=== PATIENT | female | born 1970 | race Caucasian/White ===

== ENCOUNTER 2016-11-20 12:50 | Emergency (ER) | payer BC, OTHER ==
[2016-11-20 14:36] VITALS: BP 124/79
--- NOTE | 2016-11-20 14:54 | UC ---
Throat Pain/Nasal Pranay HPI - HPI Summary HPI Summary: worsening sinus pain and congestion, Head feels terrible, body aches been going on for 5 days and hjas surgery scheduled Friday---Is concerned it may be cancelled - History of Current Complaint Chief Complaint: UCRespiratory Stated Complaint: SINUS,COUGH,CONGESTION Time Seen by Provider: 11/20/16 14:44 Hx Obtained From: Patient Hx Last Menstrual Period: 10/10/16 ?: No Onset/Duration: Sudden Onset, Lasting Days - 5, Still Present, Worse Since - getting worse daily Severity: Moderate Pain Intensity: 6 Pain Scale Used: 0-10 Numeric Cough: Nonproductive Associated Signs & Symptoms: Positive: Sinus Discomfort - Allergies/Home Medications Allergies/Adverse Reactions: Allergies Allergy/AdvReac Type Severity Reaction Status Date / Time Erythromycin Allergy Severe Hives Verified 11/20/16 14:27 Adhesive Tape Allergy Mild Rash, Verified 11/20/16 14:27 Swelling PMH/Surg Hx/FS Hx/Imm Hx Previously Healthy: No Endocrine History Of: Denies: Diabetes, Thyroid Disease Cardiovascular History Of: Reports: Cardiac Disorders - SVT Denies: Hypertension, Congestive Heart Failure Respiratory History Of: Reports: Asthma Denies: COPD GI/ History Of: Denies: Ulcer, Renal Disease - Surgical History Surgical History: Yes Surgery Procedure, Year, and Place: R shoulder surgery......C SECTIONS, GALL BLADDER REMOVAL, T&A,.. CYST REMOVED FROM NECK, VARICOSE VEIN STRIPPING; TUBAL LIGATION, STENT in left groin. - Family History Known Family History: Positive: Diabetes, Respiratory Disease, Other - GOUT - Social History Occupation: Employed Full-time Lives: With Family Alcohol Use: None Substance Use Type: Excessive Caffeine Smoking Status (MU): Heavy Every Day Tobacco Smoker Type: Cigarettes Amount Used/How Often: ~ 1/2 ppd Length of Time of Smoking/Using Tobacco: started ~ age 14 Household Exposure Type: Cigarettes Cessation Counseling: Patient Advised to Stop - Immunization History Most Recent Influenza Vaccination: Fall 2015 Most Recent Tetanus Shot: 2012 Review of Systems Constitutional: Negative Skin: Negative Eyes: Negative ENT: Negative Respiratory: Cough Cardiovascular: Negative Gastrointestinal: Negative Genitourinary: Negative Motor: Negative Neurovascular: Negative Musculoskeletal: Negative Neurological: Headache - frontal and maxillary sinus Psychological: Negative All Other Systems Reviewed And Are Negative: Yes Physical Exam Triage Information Reviewed: Yes Appearance: Well-Nourished, Ill-Appearing, Pain Distress Vital Signs: Initial Vital Signs Temp 97.2 F 11/20/16 14:30 Pulse 81 11/20/16 14:30 Resp 18 11/20/16 14:30 BP 124/79 11/20/16 14:30 Pulse Ox 96 11/20/16 14:30 Vital Signs Reviewed: Yes Eye Exam: Normal Eyes: Positive: Conjunctiva Clear ENT Exam: Normal ENT: Positive: Normal ENT inspection, Hearing grossly normal, Pharynx normal, Nasal congestion, TMs normal. Negative: Nasal drainage, Tonsillar swelling, Tonsillar exudate, Trismus, Muffled/hoarse voice Dental Exam: Normal Neck exam: Normal Neck: Positive: Supple, Nontender, No Lymphadenopathy Respiratory Exam: Normal Respiratory: Positive: Chest non-tender, Lungs clear, Normal breath sounds, No respiratory distress, No accessory muscle use Cardiovascular Exam: Normal Cardiovascular: Positive: RRR, No Murmur, Pulses Normal, Brisk Capillary Refill Musculoskeletal Exam: Normal Musculoskeletal: Positive: Strength Intact, ROM Intact, No Edema Neurological Exam: Normal Neurological: Positive: Alert, Muscle Tone Normal Psychological Exam: Normal Skin Exam: Normal Throat Pain/Nasal Course/Dx - Course Assessment/Plan: flonase or nasonex, zyrtec D, Augmentin, increase fluids, nicotine cesassation, follow with pcp - Differential Dx/Diagnosis Differential Diagnosis/HQI/PQRI: Laryngitis, Peritonsillar Abscess, Pharyngitis , Sinusitis, URI Provider Diagnoses: Rhinosinusitis Discharge - Discharge Plan Condition: Stable Disposition: HOME Prescriptions: Amoxicillin/Clavulanate TAB* [Augmentin TAB 875*] 875 mg PO BID #20 tab Cetirizine-Pseudoephedrine [Zyrtec-D Allergy/Congesti] 1 tab PO BID PRN #30 tab PRN Reason: nasal congestion Patient Education Materials: How to Stop Smoking (ED), Sinusitis (ED), Cigarette Smoking and Your Health (GEN), How to Use Nasal [place] (ED) Forms: *Work Release Referrals: Isidro Flores MD [Medical Doctor] - 5 Days
== END 2016-11-20 15:18 | disposition home or self-care (01) ==
LOC: UCCORT 12:50
DX: J32.9 Chronic sinusitis, unspecified (principal); I47.1 Supraventricular tachycardia; J45.909 Unspecified asthma, uncomplicated; Z90.49 Acquired absence of other specified parts of digestive tract; Z88.1 Allergy status to other antibiotic agents; F17.210 Nicotine dependence, cigarettes, uncomplicated
CPT/HCPCS: 99212; G0463

== ENCOUNTER → 2016-11-25 06:14 | Day surgery (SDC) | payer OTHER ==
--- NOTE | 2016-11-22 20:39 | HP ---
PREOPERATIVE HISTORY AND PHYSICAL: DATE OF ADMISSION: 11/25/16 CHIEF COMPLAINT: Right forefoot pain. HISTORY OF PRESENT ILLNESS: Pastora is a 46-year-old female who has had ongoing complaints of right first MTP joint pain since she was working at the alf in [place] when a medication cart ran over the medial border of her forefoot. She states that she continued working on that area. However, she has had persistent pain. She did not get any relief from a cortisone injection into that area. She also got no relief from immobilization and rest. She has also tried light duty at work; however, pain persists. She underwent MRI, which did show some damage to the medial sesamoid, which is thought to be the area of her pain generation. She is interested in surgical intervention at this point for correction of the problem. PAST MEDICAL HISTORY: Hyperlipidemia, hypertension, protein C deficiency. PAST SURGICAL HISTORY: Right shoulder arthroscopy, cyst removal from her neck, C- section x3, cholecystectomy, vein stripping in her legs, in her left groin, tonsillectomy, and uterine ablation x2. She reports no complications with anesthesia with any of those procedures. CURRENT MEDICATIONS: 1. Pradaxa 150 mg p.o. b.i.d. 2. Metoprolol tartrate 25 mg p.o. q.h.s. 3. Mirapex 0.125 mg 3 tabs q.h.s. 4. Tizanidine 4 mg p.o. q.h.s. 5. Omeprazole 40 mg p.o. q.h.s. 6. Zyrtec 10 mg p.o. q.h.s. 7. Aspirin 81 mg p.o. q.h.s. 8. Albuterol HFA inhaled q.4 hours p.r.n. ALLERGIES: ERYTHROMYCIN. FAMILY HISTORY: Noncontributory. 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 She lives with her . She smokes half to 1 pack of cigarettes per day. She drinks alcohol rarely. She exercises occasionally. REVIEW OF SYSTEMS: Constitutional: Negative for recent hospitalization, fevers , chills, night sweats, or weight loss. Head: Negative for headache, lightheadedness or balance problems. Cardiovascular: Negative for chest or arm pain with exertion, history of heart attack, heart murmur, heart palpations. Positive for high blood pressure, positive for history of DVT. Respiratory: Negative for chronic cough, shortness of breath with exertion. Positive for asthma. Negative for COPD. Gastrointestinal: Positive for heart burn. Negative for nausea, vomiting, diarrhea, or constipation. Positive for GERD. Genitourinary: Negative for nighttime urination, frequency of urination, urinary tract infections, or kidney problems. Musculoskeletal: Negative for chronic back pain or recent fractures. Skin: Negative for rashes, lesions, lumps, or sores. Neurologic: Negative for seizure, stroke, epilepsy, depression , or anxiety. Endocrine: Negative for diabetes or thyroid problems. Hematology : Positive for easy bleeding due to the Pradaxa. Negative for anemia. PHYSICAL EXAMINATION GENERAL: She is a well-developed and well-nourished pleasant female, in no acute distress at rest. She is alert and oriented x3 with appropriate mood and affect. VITAL SIGNS: The patient is 5 feet 4 inches, weight 200 pounds. Blood pressure 116/77, pulse 96, temperature 96.8. HEENT: Normocephalic, atraumatic. Hearing and vision are grossly intact. She does not have any dentures or implants. NECK: Trachea is midline. CARDIOVASCULAR: Regular rate and rhythm. No murmurs, rubs, or gallops. Normal S1 and S2. RESPIRATORY: Lungs are clear to auscultation bilaterally. No wheezes, rales, or rhonchi. ABDOMEN: Soft, nondistended, nontender, and normal bowel sounds. EXTREMITIES: The right lower extremity skin is intact without abrasions or open wounds. There is no edema, ecchymosis, or gross deformity. She has tenderness to palpation along the plantar aspect of her foot at the medial sesamoid. She is nontender over the FHL tendon or the lateral sesamoid. She is able to flex and extend at her MTP joints. Sensation to light touch is intact. She has a 2+ dorsalis pedis pulse. IMPRESSION: Right foot sesamoiditis. PLAN: The patient is to undergo right foot medial sesamoid excision by Dr. Barrett on 11/25/16. The risks, benefits, and postoperative course were discussed with the patient at length and she would like to proceed. A prescription for oxycodone was sent to her pharmacy for postoperative pain. Her primary care doctor was contacted in regards to her Pradaxa and she is cleared to stop taking the Pradaxa for 3 days prior to her procedure. All of her questions were answered to her full satisfaction. We will follow up with the patient in the postoperative phase. HAVEN BACH [id number]/[facility] #: [id number] [place]
[~2016-11-25 06:14] MED LIST: Buffered Lidocaine 1% SYRIN* 3 ML/SYR SYRINGE INTRADERM ONE; Bupivacaine 0.5% SDV PF* 30 ML VIAL ONE; Dexamethasone IV* 4 MG/ML 1 ML (4 MG) IV SLOW PU ONE; Dexamethasone IV* 4 MG/ML 1 ML (4 MG) ONE; DiMENhydriNATE IV* 50 MG/ML VIAL IV PUSH PRN; Famotidine IV* 10 MG/ML 2 ML (20 mg) IV ONE; Famotidine IV* 10 MG/ML 2 ML (20 mg) ONE; HYDROmorphone* 1 MG/ML 1 ML SYR IV PRN; Ketorolac INJ* 30 MG/ML 1 ML VIAL ONE; Lidocaine 2% PF* 5 ML VIAL ONE; Midazolam* 1 MG/ML 2 ML VIAL (2 MG) ONE; Ondansetron INJ* 2 MG/ML VIAL IV PRN; Ondansetron INJ* 2 MG/ML VIAL ONE; PROCHLORPERAZINE INJ 5 MG/ML 2 ML VIAL IV PRN; Propofol* 10 MG/ML 20 ML BTL IV PUSH ONE; Scopolamine 1.5 mg* PATCH TRANSDERM PRN; Scopolomine PATCH Remove* 1 NOTE MISC PATCH OFF ONE; ceFAZolin 2 GM PREMIX(*) 2 GM/50 ML BAG IVPB ONE; fentaNYL* 50 MCG/ML 2 ML VIAL (100 MCG VIAL) IV PRN; fentaNYL* 50 MCG/ML 2 ML VIAL (100 MCG VIAL) ONE; oxyCODONE TAB* 5 MG TAB ONE
[2016-11-25 09:22] VITALS: BP 134/80
--- NOTE | 2016-11-26 09:26 | OP ---
OPERATIVE REPORT: DATE OF SURGERY: 11/25/16 - [facility] DATE OF : 68 ATTENDING SURGEON: Hari Barrett MD. WATER REGULATOR AND VALVE REPAIRER: Sabra Roland PA-C. ANESTHESIOLOGIST: Carson Colón MD ANESTHESIA: General. PRE-OP DIAGNOSIS: Osteochondrosis, right medial sesamoid. POST-OP DIAGNOSIS: Osteochondrosis, right medial sesamoid. PRIMARY PROCEDURE: Right medial sesamoidectomy. DESCRIPTION OF PROCEDURE: The patient was taken to the operating room where a thigh tourniquet was applied. We made a longitudinal incision directly at the medial eminence with the capsular preserved, but reflecting the soft tissues plantarward. Capsulotomy was made just dorsomedial to the sesamoid and with a 15 blade, I excised the medial sesamoid from the surrounding soft tissues. I then repaired the capsule with 2-0 Vicryl interrupted sutures and 4-0 nylon for the skin and a compression dressing applied. [id number]/[facility] #: [id number] MTDD
== END | disposition home or self-care (01) ==
LOC: OR 06:14
PROVIDERS: ATTEND Orthopaedic Surgery
DX: M93.871 Other specified osteochondropathies, right ankle and foot (principal); I10 Essential (primary) hypertension; E78.5 Hyperlipidemia, unspecified; J45.909 Unspecified asthma, uncomplicated; F17.210 Nicotine dependence, cigarettes, uncomplicated; I47.1 Supraventricular tachycardia; Z86.718 Personal history of other venous thrombosis and embolism; Z79.01 Long term (current) use of anticoagulants
CPT/HCPCS: A9270-GY; J0690; J1100; J1885; J2250; J2405; J2704; J3010

== ENCOUNTER 2017-11-06 08:23 | Emergency (ER) | payer MEDICAID, OTHER ==
[2017-11-06 08:48] VITALS: BP 125/74
--- NOTE | 2017-11-06 08:59 | UC ---
Respiratory Complaint HPI - HPI Summary HPI Summary: 47 year old with exposure to RSV. Cough for 3 days, runny nose, head and chest congestion, chest pressure; exposed to RSV at work [ End ] - History of Current Complaint Chief Complaint: UCRespiratory Stated Complaint: COUGH Time Seen by Provider: 11/06/17 08:52 Hx Obtained From: Patient Hx Last Menstrual Period: 1 yr Onset/Duration: Sudden Onset Pain Intensity: 0 Character: Cough: Nonproductive Aggravating Factors: Nothing Alleviating Factors: Nothing Associated Signs And Symptoms: Positive: Nasal Congestion - Allergies/Home Medications Allergies/Adverse Reactions: Allergies Allergy/AdvReac Type Severity Reaction Status Date / Time erythromycin base Allergy Severe Hives Verified 11/06/17 08:31 Adhesive Tape Allergy Mild Rash Verified 06/09/17 14:12 Home Medications: Home Medications Metoprolol Tartrate TAB* [Lopressor TAB*] 25 mg PO BEDTIME 11/06/17 [History Confirmed 11/06/17] Omeprazole CAP* [Prilosec CAP* 20 MG] 40 mg PO BEDTIME 11/06/17 [History Confirmed 11/06/17] Rosuvastatin Calcium [Crestor] 40 mg PO BEDTIME 11/06/17 [History Confirmed ] PMH/Surg Hx/FS Hx/Imm Hx Previously Healthy: Yes Endocrine History: Dyslipidemia Cardiovascular History: Hypertension GI/ History: Gastroesophageal Reflux - Surgical History Surgical History: Yes Surgery Procedure, Year, and Place: T&A- 1992- [place]. C SECTION- 1987, [place]- [place], [place]- [place], [facility] TUBAL LIGATION- 1997- [facility]. LEFT VARICOSE VEIN STRIPPING- 1997- [place]. LAPAROSCOPIC CHOLECYSTECTOMY- 1997- [facility] CYST REMOVED FROM RIGHT SIDE OF NECK- 2011- [facility] STENT IN LEFT GROIN- 2014 - [facility] ROT[place] [facility] [place] [facility] [place] Family History Known Family History: Positive: Diabetes, Respiratory Disease, Other - GOUT - Social History Alcohol Use: None Substance Use Type: Excessive Caffeine Substance Use Comment - Amount & Last Used: DRINKS 1 POTS OF COFFEE/DAY Smoking Status (MU): Light Every Day Tobacco Smoker Type: Cigarettes Amount Used/How Often: ~ 1/2 ppd FOR 32 YRS Length of Time of Smoking/Using Tobacco: 32 YRS Have You Smoked in the Last Year: Yes When Did the Patient Quit Smoking/Using Tobacco: PATIENT STATES HAS INFORMATION ON QUITTING Household Exposure Type: Cigarettes - Immunization History Most Recent Influenza Vaccination: Fall 2015 Most Recent Tetanus Shot: 2012 Review of Systems Constitutional: Fatigue ENT: Ear Ache, Nasal Discharge, Sinus Congestion Respiratory: Cough Is Patient Immunocompromised?: No All Other Systems Reviewed And Are Negative: Yes Physical Exam Triage Information Reviewed: Yes Appearance: Well-Appearing, No Pain Distress, Well-Nourished Vital Signs: Initial Vital Signs Temp 98.7 F 11/06/17 08:43 Pulse 93 11/06/17 08:43 Resp 20 11/06/17 08:43 BP 125/74 11/06/17 08:43 Pulse Ox 99 11/06/17 08:43 Vital Signs Reviewed: Yes Eye Exam: Normal ENT Exam: Normal ENT: Positive: Nasal congestion, TM dull - right Dental Exam: Normal Neck exam: Normal Neck: Positive: 1 Respiratory Exam: Normal Respiratory: Positive: Chest non-tender, Lungs clear, Normal breath sounds, No respiratory distress, No accessory muscle use Cardiovascular Exam: Normal Musculoskeletal Exam: Normal Neurological Exam: Normal Psychological Exam: Normal Skin Exam: Normal UC Diagnostic Evaluation - Laboratory O2 Sat by Pulse Oximetry: 99 Respiratory Course/Dx - Differential Dx/Diagnosis Provider Diagnoses: Viral URI with exposure to RSV Discharge - Sign-Out/Discharge Documenting (check all that apply): Discharge - Discharge Plan Condition: Good Disposition: HOME Prescriptions: Benzonatate CAP* [Tessalon 100 MG CAP*] 100 mg PO TID PRN #20 cap PRN Reason: Cough Patient Education Materials: Upper Respiratory Infection (ED) Forms: *Work Release Referrals: Hari Hogan DO [Primary Care Provider] - 4 Days - Billing Disposition and Condition Condition: GOOD Disposition: HOME
== END 2017-11-06 09:22 | disposition home or self-care (01) ==
LOC: UCCORT 08:23
DX: J06.9 Acute upper respiratory infection, unspecified (principal); Z20.828 Contact with and (suspected) exposure to other viral communicable diseases; F17.210 Nicotine dependence, cigarettes, uncomplicated; Z88.3 Allergy status to other anti-infective agents
CPT/HCPCS: 99212; G0463

== ENCOUNTER 2018-05-25 14:06 | Day surgery (SDC) | payer OTHER ==
[~2018-05-25 14:06] MED LIST changes: +Buffered Lidocaine 0.9% SYRIN* 5 ML/SYR SYRINGE ONE; -Buffered Lidocaine 1% SYRIN* 3 ML/SYR SYRINGE INTRADERM ONE; -Bupivacaine 0.5% SDV PF* 30 ML VIAL ONE; -Dexamethasone IV* 4 MG/ML 1 ML (4 MG) IV SLOW PU ONE; -Dexamethasone IV* 4 MG/ML 1 ML (4 MG) ONE; -DiMENhydriNATE IV* 50 MG/ML VIAL IV PUSH PRN; -Famotidine IV* 10 MG/ML 2 ML (20 mg) IV ONE; -Famotidine IV* 10 MG/ML 2 ML (20 mg) ONE; -HYDROmorphone* 1 MG/ML 1 ML SYR IV PRN; -Ketorolac INJ* 30 MG/ML 1 ML VIAL ONE; -Lidocaine 2% PF* 5 ML VIAL ONE; -Midazolam* 1 MG/ML 2 ML VIAL (2 MG) ONE; -Ondansetron INJ* 2 MG/ML VIAL IV PRN; -Ondansetron INJ* 2 MG/ML VIAL ONE; -PROCHLORPERAZINE INJ 5 MG/ML 2 ML VIAL IV PRN; -Propofol* 10 MG/ML 20 ML BTL IV PUSH ONE; -Scopolamine 1.5 mg* PATCH TRANSDERM PRN; -Scopolomine PATCH Remove* 1 NOTE MISC PATCH OFF ONE; +ceFAZolin 2 GM PREMIX in ORs 2 GM/50 ML BAG IVPB ONE; -ceFAZolin 2 GM PREMIX(*) 2 GM/50 ML BAG IVPB ONE; -fentaNYL* 50 MCG/ML 2 ML VIAL (100 MCG VIAL) IV PRN; -fentaNYL* 50 MCG/ML 2 ML VIAL (100 MCG VIAL) ONE; -oxyCODONE TAB* 5 MG TAB ONE
[2018-05-25] MEDS ORDERED: Midazolam* 1 MG/ML 2 ML VIAL (2 MG) ONE ×3 (16:14→17:09)
[2018-05-25] MEDS ORDERED: fentaNYL* 50 MCG/ML 2 ML VIAL (100 MCG VIAL) ONE (16:14)
[2018-05-25] MEDS ORDERED: Propofol* 10 MG/ML 20 ML BTL IV PUSH ONE (17:06)
[2018-05-25] MEDS ORDERED: Lidocaine 1% INJ* 10 MG/ML 30 ML SDV ONE (17:07)
[2018-05-25] MEDS ORDERED: Lidocaine 2% PF * 5 ML VIAL ONE (17:07)
[2018-05-25] MEDS ORDERED: Naloxone* 0.4 MG/ML 1 ML VIAL IV PRN (17:40)
[2018-05-25] MEDS ORDERED: oxyCODONE TAB* 5 MG TAB ONE (18:25)
[2018-05-25 18:55] VITALS: BP 129/92
--- NOTE | 2018-05-26 11:46 | OP ---
DATE OF OPERATION: 05/25/18 - [facility] DATE OF : 68 SURGEON: Hari Barrett MD FIRE FIGHTER: Sabra Roland PA-C PRE-OP DIAGNOSIS: Painful hardware, right first MTP joint. POST-OP DIAGNOSIS: Painful hardware, right first MTP joint. OPERATIVE PROCEDURE: Removal of hardware, right first MTP joint. DESCRIPTION OF PROCEDURE: The patient was taken to the operating room where plain lidocaine was instilled around the base of the first metatarsal, ankle Esmarch was applied. We opened up longitudinally over the dorsum of the first MTP joint. Cultures were sent. There was no purulence visible. The plate was removed with the F3 screwdriver as well as the small lag screw with a small fragment screwdriver. We irrigated thoroughly closing deep tissues with 3-0 Vicryl, subcu with 3-0 Vicryl, and then 3-0 nylon for the skin, and a compression dressing applied. [id number]/[facility] #: [id number] [facility]
== END 2018-05-25 18:45 | disposition home or self-care (01) ==
LOC: OR 14:06 → MERGE 15:45 → OR 18:45
PROVIDERS: ATTEND Orthopaedic Surgery
DX: T84.84XA Pain due to internal orthopedic prosthetic devices, implants and grafts, initial encounter (principal); Y83.1 Surgical operation with implant of artificial internal device as the cause of abnormal reaction of the patient, or of later complication, without mention of misadventure at the time of the procedure; I47.1 Supraventricular tachycardia; Z72.0 Tobacco use; J45.909 Unspecified asthma, uncomplicated; K21.9 Gastro-esophageal reflux disease without esophagitis; Z86.718 Personal history of other venous thrombosis and embolism; Z79.01 Long term (current) use of anticoagulants
CPT/HCPCS: 87070; 87073; 87205; 88300; A9270-GY; J0690; J2250; J2704; J3010

== ENCOUNTER 2018-11-04 09:11 | Emergency (ER) | payer BC ==
--- NOTE | 2018-11-04 11:46 | UC ---
Respiratory Complaint HPI - HPI Summary HPI Summary: 48-year-old female presents with 5 day history of headache, nasal congestion, mild sore throat, chest tightness, wheezing, and occasionally productive cough for yellow sputum. States symptoms have been progressively worsening especially over the last 2 days. Associated with feeling "hot and cold". She is also reporting some very diarrhea. Typically having 2-3 episodes in the morning. Using albuterol inhaler every 4-6 hours with little relief. Patient smokes half a pack a day. Denies fever, chills, ear pain, dysphagia, chest pain , palpitations, dizziness, lightheadedness, abdominal pain, vomiting, blood in stool, recent travel out of the country, consumption of raw or undercooked meats or seafood, or antibiotic use. - History of Current Complaint Chief Complaint: UCGeneralIllness Stated Complaint: COUGH DIARRHEA HEAD CONGESTION Time Seen by Provider: 11/04/18 11:21 Hx Obtained From: Patient Hx Last Menstrual Period: 1 yr Pain Intensity: 2 - Allergies/Home Medications Allergies/Adverse Reactions: Allergies Allergy/AdvReac Type Severity Reaction Status Date / Time erythromycin base Allergy Severe Hives Verified 11/04/18 09:25 Adhesive Tape Allergy Mild Rash Verified 11/04/18 09:25 PMH/Surg Hx/FS Hx/Imm Hx - Additional Past Medical History Additional PMH: RLS Previously Healthy: Yes Endocrine History: Dyslipidemia Cardiovascular History: Hypertension, Deep Vein Thrombosis - Surgical History Surgical History: Yes Surgery Procedure, Year, and Place: T&A- 1992- [place]. [place]- 1987, [place], [place] TUBAL LIGATION- 1997- [place]. LEFT VARICOSE VEIN STRIPPING- 1997- [place]. LAPAROSCOPIC CHOLECYSTECTOMY- [facility]. CYST REMOVED FROM RIGHT SIDE OF NECK- 2011- [place]. STENT IN LEFT GROIN- 2014 - [place] RIGHT ROTATOR CUFF REPAIR- 03/2012- [facility] [place]. OSTEOCHONDROPATHY RIGHT FOOT AND ANKLE- 11/2016- [facility] [place]. right foot, 05/2017, [facility] [place] - Family History Known Family History: Positive: Diabetes, Respiratory Disease, Other - GOUT - Social History Occupation: Employed Full-time Lives: With Family Alcohol Use: Rare Alcohol Amount: holidays Substance Use Type: Excessive Caffeine Substance Use Comment - Amount & Last Used: DRINKS 1 POTS OF COFFEE/DAY Smoking Status (MU): Light Every Day Tobacco Smoker Type: Cigarettes Amount Used/How Often: ~ 1/2 ppd FOR 32 YRS Length of Time of Smoking/Using Tobacco: 32 YRS Have You Smoked in the Last Year: Yes When Did the Patient Quit Smoking/Using Tobacco: PATIENT STATES HAS INFORMATION ON QUITTING Household Exposure Type: Cigarettes - Immunization History Most Recent Influenza Vaccination: Fall 2015 Most Recent Tetanus Shot: 2012 Review of Systems All Other Systems Reviewed And Are Negative: Yes Constitutional: Negative: Fever, Chills Skin: Negative: Rash Eyes: Negative: Drainage, Eye Redness ENT: Positive: Sore Throat, Nasal Discharge, Sinus Congestion. Negative: Ear Ache, Sinus Pain/Tenderness Respiratory: Positive: Cough, Other - Wheezing and chest tightness Cardiovascular: Negative: Palpitations, Chest Pain Gastrointestinal: Positive: Diarrhea. Negative: Abdominal Pain, Vomiting, Nausea Genitourinary: Positive: Negative Musculoskeletal: Positive: Negative Neurological: Positive: Headache Is Patient Immunocompromised?: No Physical Exam - Summary Physical Exam Summary: GENERAL APPEARANCE: Well developed, obese, alert and cooperative, and appears to be in no acute distress. EYES: Conjunctiva clear. No drainage. Vision is grossly intact. EARS: External auditory canals and tympanic membranes clear, hearing grossly intact. NOSE: Mild-moderate nasal congestion. No nasal discharge. THROAT: Mild pharyngeal erythema with cobblestoning. Tonsils surgically absent. Uvula midline. NECK: Neck supple, non-tender without lymphadenopathy. CARDIAC: Normal S1 and S2. No S3, S4 or murmurs. Rhythm is regular. There is no peripheral edema, cyanosis or pallor. Extremities are warm and well perfused. Capillary refill is less than 2 seconds. Peripheral pulses intact. LUNGS: Clear to auscultation without rales, rhonchi, wheezing or diminished breath sounds. Non-productive cough. ABDOMEN: Positive bowel sounds. Soft, nondistended, nontender. No guarding or rebound. No masses or hepatosplenomegally. MUSKULOSKELETAL: ROM intact to all extremities. No joint erythema or tenderness. Normal muscular development. Normal gait. SKIN: Skin normal color, texture and turgor with no lesions or eruptions. Triage Information Reviewed: Yes Vital Signs: Initial Vital Signs Temp 96.8 F 11/04/18 09:22 Pulse 100 11/04/18 09:22 Resp 20 11/04/18 09:22 BP 152/89 11/04/18 09:22 Pulse Ox 99 11/04/18 09:22 Vital Signs Reviewed: Yes Respiratory Course/Dx - Course Course Of Treatment: 48-year-old female presents with 5 day history of headache, nasal congestion, mild sore throat, chest tightness, wheezing, and occasionally productive cough for yellow sputum. States symptoms have been progressively worsening especially over the last 2 days. Associated with feeling "hot and cold". She is also reporting some very diarrhea. Typically having 2-3 episodes in the morning. Using albuterol inhaler every 4-6 hours with little relief. Patient smokes half a pack a day. Denies fever, chills, ear pain, dysphagia, chest pain , palpitations, dizziness, lightheadedness, abdominal pain, vomiting, blood in stool, recent travel out of the country, consumption of raw or undercooked meats or seafood, or antibiotic use. Afebrile. Mildly hypertensive and tachycardic at triage otherwise vital signs stable. Exam revealed nasal congestion, mild pharyngeal erythema with cobblestoning, dry nonproductive cough , clear bilateral breath sounds, soft nontender abdomen, and otherwise unremarkable exam. Discussed with patient that her symptoms were likely viral however with the worsening of symptoms patient is requesting treatment with an antibiotic. Discussed the risks and benefits of treating a viral illness with antibiotics and patient still elects to start. Will treat with a course of azithromycin. Patient has a reported allergy to erythromycin however has taken a Z-Michael without issue. Also recommending symptomatic treatment for her URI symptoms including fluticasone nasal spray, saline rinses, Tessalon Perles 1 cap every 8 hours as needed for cough, and continued use of her albuterol inhaler as needed. I am also recommending that she try an [id number] antidiarrheal such as Imodium according to directions for the diarrhea. She is to follow-up with her primary care provider in 5-7 days if symptoms do not improve. Anticipatory guidance and warning symptoms reviewed with the patient. Verbalizes understanding and agrees with plan of care. - Differential Dx/Diagnosis Differential Diagnosis/HQI/PQRI: Bronchitis, Influenza, Lower Resp Infection, Sinusitis, Other - diarrhea Provider Diagnosis: URI with cough and congestion, Diarrhea Discharge - Sign-Out/Discharge Documenting (check all that apply): Patient Departure All imaging exams completed and their final reports reviewed: No Studies - Discharge Plan Condition: Stable Disposition: HOME Prescriptions: Azithromyxin MICHAEL (NF) [Z-Michael (Zithromax) 250 mg tabs #6] 2 tab PO .TODAY, THEN 1 DAILY #6 tab Benzonatate CAP* [Tessalon 100 MG CAP*] 100 mg PO TID PRN #30 cap PRN Reason: Cough Fluticasone NASAL SPRAY 50MCG* [Flonase NASAL SPRAY 50MCG*] 2 spray BOTH NARES DAILY #1 btl Patient Education Materials: Upper Respiratory Infection (ED), Acute Diarrhea ( ED) Forms: *Work Release Referrals: aHri Hogan DO [Primary Care Provider] - 7 Days Additional Instructions: Your history and exam are consistent with an upper respiratory infection. With the persistent symptoms and your smoking history we will start you on an antibiotic to treat for possible bacterial infection. Take azithromycin 2 tabs today then 1 tab a day for the next 4 days. Drink plenty of fluids to avoid dehydration especially if you are running any fever. Use a saline rinse kit such as Neti Pot or NeilMed at least twice a day to help thin secretions and promote drainage of the sinuses. Use fluticasone (Flonase) nasal spray 2 sprays each nostril once daily. Use Tessalon Perles 1 cap every 8 hours as needed for cough. Take over the counter acetaminophen (Tylenol) or ibuprofen (Advil, Motrin) according to directions as needed for pain or fever. Use salt water gargles several times a day if you have a sore throat. You may also use Chloraseptic spray or Cepacol lonzenges according to directions which contain a numbing medication and can provide some temporary relief from your sore throat. Acute diarrhea typically resolves on its own without treatment over a few days. The most important consideration with diarrhea is avoiding dehydration. Try using an over the counter anti-diarrheal such as Imodium according to directions. Be sure to drink plenty of fluids. Avoid beverages containing caffeine or artificial sweeteners as these can worsen symptoms. Be sure to eat a well balanced diet. Boiled starches and cereals (potatoes, rice , cream of wheat, oatmeal) as well as food such as crackers, toast, bananas, soups and boiled vegetables are usually recommended if you are having watery diarrhea. Be sure to use good hand hygiene to prevent spreading infection. Follow up with your primary care provider in 5-7 days if symptoms persist. Seek immediate medical attention in the emergency room if you have fever greater than 100.5 F despite taking acetaminophen or ibuprofen, have chest pain , difficulty breathing, severe abdominal pain, persistent vomiting, blood in your stool, or have any worsening of symptoms. - Billing Disposition and Condition Condition: STABLE Disposition: Home
[2018-11-04 12:16] VITALS: BP 141/79
== END 2018-11-04 12:13 | disposition home or self-care (01) ==
LOC: UCEAST 09:11
DX: J06.9 Acute upper respiratory infection, unspecified (principal); R05 Cough; R09.81 Nasal congestion; R19.7 Diarrhea, unspecified; I10 Essential (primary) hypertension; F17.210 Nicotine dependence, cigarettes, uncomplicated; Z86.718 Personal history of other venous thrombosis and embolism; Z88.1 Allergy status to other antibiotic agents; Z91.09 Other allergy status, other than to drugs and biological substances
CPT/HCPCS: 99212; G0463

== ENCOUNTER 2019-02-01 08:34 | Emergency (ER) | payer BC ==
[2019-02-01 08:48] VITALS: BP 170/104
[2019-02-01] MEDS ORDERED: Ondansetron INJ* 2 MG/ML VIAL IV ONE (08:57)
[2019-02-01] MEDS ORDERED: NS 0.9% 1000 ML** 1,000 ML IV SCH (09:00)
--- NOTE | 2019-02-01 09:05 | UC ---
Headache HPI - HPI Summary HPI Summary: Patient is a 48-year-old female who presents to the urgent care with chief complaint of having a headache and numbness and tingling in the left side of the face. She reports that she has history migraine headaches however this headache is different from her usual migraine headache. Patient reports that when she has a headache she never has this tingling in the left side of the face as she presents today. The patient has a medical history significant for hypertension, dyslipidemia, and Protein C deficiency. Patient reports that this Headache is different from her migraine headaches. - History Of Current Complaint Chief Complaint: UCHeadache Stated Complaint: HEADACHE Time Seen by Provider: 02/01/19 08:48 Hx Obtained From: Patient Hx Last Menstrual Period: 1 yr ?: No Onset/Duration: Gradual Onset Initially Headache Was: Moderate Currently Pain Is: Moderate Pain Intensity: 7 - Allergies/Home Medications Allergies/Adverse Reactions: Allergies Allergy/AdvReac Type Severity Reaction Status Date / Time erythromycin base Allergy Severe Hives Verified 02/01/19 08:38 Adhesive Tape Allergy Mild Rash Verified 02/01/19 08:38 Home Medications: Home Medications Aspirin 81 mg CHEW TAB* [Aspirin Low Dose TAB*] 81 mg PO DAILY 02/01/19 [ History Confirmed 02/01/19] Aspirin/Acetaminophen/Caffeine [Excedrin Migraine Caplet] 1 each PO ONCE [History Confirmed 02/01/19] PMH/Surg Hx/FS Hx/Imm Hx Previously Healthy: Yes Neurological History: Migraine - Surgical History Surgical History: Yes Surgery Procedure, Year, and Place: T&A- 1992- [place]. [place]- 1987, [place], [place], [place] TUBAL LIGATION- 1997- [facility]. LEFT VARICOSE VEIN STRIPPING- 1997- [facility]. LAPAROSCOPIC CHOLECYSTECTOMY- 1997- [facility]. CYST REMOVED FROM RIGHT SIDE OF NECK- 2011- [facility]. STENT IN LEFT GROIN- 2014 - [place]. RIGHT ROTATOR CUFF REPAIR- 03/2012- [facility] [place]. OSTEOCHONDROPATHY RIGHT FOOT AND ANKLE- 11/2016- [facility] [place]. right foot, 05/2017, [facility] [place]. [place] removal of foot 05/2018 - Family History Known Family History: Positive: Diabetes, Respiratory Disease, Other - GOUT - Social History Alcohol Use: None Alcohol Amount: holidays Substance Use Type: None Substance Use Comment - Amount & Last Used: DRINKS 1 POTS OF COFFEE/DAY Smoking Status (MU): Light Every Day Tobacco Smoker Type: Cigarettes Amount Used/How Often: 1 cig day Length of Time of Smoking/Using Tobacco: 32 YRS Have You Smoked in the Last Year: Yes When Did the Patient Quit Smoking/Using Tobacco: PATIENT STATES HAS INFORMATION ON QUITTING Household Exposure Type: Cigarettes - Immunization History Most Recent Influenza Vaccination: Fall 2015 Most Recent Tetanus Shot: 2012 Review of Systems All Other Systems Reviewed And Are Negative: Yes Constitutional: Positive: Negative Skin: Positive: Negative Eyes: Positive: Negative ENT: Positive: Negative Respiratory: Positive: Negative Cardiovascular: Positive: Negative Gastrointestinal: Positive: Negative Genitourinary: Positive: Negative Motor: Positive: Negative Neurovascular: Positive: Decreased Sensation Musculoskeletal: Positive: Negative Neurological: Positive: Headache Psychological: Positive: Negative Is Patient Immunocompromised?: No Physical Exam - Summary Physical Exam Summary: VITAL SIGNS: Reviewed. GENERAL: Patient is a well developed and nourished female who is sitting comfortably in the stretcher. Patient is not in any acute respiratory distress. HEAD AND FACE: No signs of trauma. No ecchymosis and hematomas in the --. No skull depressions. EYES: PERRLA, EOMI x 2, No injected conjunctiva, no nystagmus. No photophobia. No raccoon eyes. EARS: Hearing grossly intact. Ear canals and tympanic membranes are within normal limits. No discharge or secretions were observed. No hemotympanum. No hernandez sign. GCS: -- MOUTH: Oropharynx within normal limits. NECK: Supple, trachea is midline, no adenopathy, no JVD, no carotid bruit, no c- spine tenderness, neck with full ROM. No meningeal signs, no Kernig's or brudzinskis signs. CHEST: Symmetric, no tenderness at palpation LUNGS: CTA B/L. CVS: RRR, S1 and S2 present, no murmurs appreciated ABDOMEN: Soft, NT, normal BS EXTREMITIES: FROM in all major joints, no edema, no cyanosis or clubbing. NEURO: Alert and oriented x 3. No acute neurological deficits. Speech is normal and follows commands. SKIN: Dry and warm GEOFFREY score is 1 GCS: 15. Triage Information Reviewed: Yes Appearance: Well-Appearing Vital Signs: Initial Vital Signs Temp 98.2 F 02/01/19 08:41 Pulse 88 02/01/19 08:41 Resp 20 02/01/19 08:41 BP 170/104 02/01/19 08:41 Pulse Ox 98 02/01/19 08:41 Headache Course/Dx - Course Course Of Treatment: In the urgent care course the patient is hypotensive and still with headache and numbness in the left side of the face. The patient obtained an IV access and she was given Zofran for nausea and vomiting. I discussed my physical exam and findings with Dr. Mccarthy from the neurology and he recommends an MRI instead of having a head CT to rule out any acute intracranial pathology. I also discussed the case with Dr. Richmond the ER attending at [facility] [place] and he accepted the patient for transfer. Patient is alert and oriented 3. - Differential Dx/Diagnosis Provider Diagnosis: Headache Discharge - Sign-Out/Discharge Documenting (check all that apply): Patient Departure All imaging exams completed and their final reports reviewed: No Studies - Discharge Plan Condition: Stable Disposition: HOME-RECOMMEND TO ED Patient Education Materials: Acute Headache (DC) Referrals: Hari Hogan DO [Primary Care Provider] - Additional Instructions: Patient transferred to the ED via ambulance - Billing Disposition and Condition Condition: STABLE Disposition: Home-Recommend to ED
== END 2019-02-01 09:15 | disposition home health service (06) ==
LOC: UCEAST 08:34
DX: R51 Headache (principal); I95.9 Hypotension, unspecified; R11.2 Nausea with vomiting, unspecified; I10 Essential (primary) hypertension; E78.5 Hyperlipidemia, unspecified; F17.210 Nicotine dependence, cigarettes, uncomplicated; Z79.82 Long term (current) use of aspirin
CPT/HCPCS: 96360; 96374; 99213; G0463; J2405